=== PATIENT | female | born 1965 | race African-American/Black ===

== ENCOUNTER 2017-09-03 11:28 | Emergency (ER) | payer OTHER ==
[2017-09-03] MEDS: METHYLPREDNISOLONE 125 MG INJ IM (12:00)
[2017-09-03] MEDS: LIDOCAINE 2% VISC 15 ML CUP PO (12:02)
== END 2017-09-03 12:16 | disposition home or self-care (01) ==
LOC: E/R 11:28 → FTE 12:16
DX: J04.0 Acute laryngitis (principal)
CPT/HCPCS: 96372; 99284-25